=== PATIENT | female | born 1950 | race Caucasian/White ===

== ENCOUNTER 2023-02-08 16:43 | Outpatient (RCR) | payer MEDICARE, OTHER, SELFPAY | END 2023-02-08 23:59 | disposition home or self-care (01) | LOC: RPT 16:43 | PROVIDERS: ATTENDING PHYSICIAN Registered Nurse; PRIMARYCARE PHYSICIAN Family Medicine | DX: N39.3 Stress incontinence (female) (male) (principal); N39.41 Urge incontinence; N39.46 Mixed incontinence; M62.89 Other specified disorders of muscle | CPT/HCPCS: 97014; 97110; 97112; 97140; 97530 ==

== ENCOUNTER 2023-02-26 13:05 | Outpatient (RCR) | payer MEDICARE, OTHER, SELFPAY | END 2023-02-26 23:59 | disposition home or self-care (01) | LOC: RPT 13:05 | PROVIDERS: ATTENDING PHYSICIAN Registered Nurse; PRIMARYCARE PHYSICIAN Family Medicine | DX: N39.3 Stress incontinence (female) (male) (principal); N39.41 Urge incontinence; N39.46 Mixed incontinence; M62.89 Other specified disorders of muscle; Z73.6 Limitation of activities due to disability | CPT/HCPCS: 97014; 97110; 97112; 97530 ==

== ENCOUNTER → 2023-03-19 09:43 | Outpatient (REF) | payer MEDICARE, OTHER, SELFPAY | LOC: RAD 09:43 | PROVIDERS: ATTENDING PHYSICIAN Urology; FAMILY PHYSICIAN Family Medicine | DX: N81.6 Rectocele (principal); N39.3 Stress incontinence (female) (male); N32.81 Overactive bladder; M62.89 Other specified disorders of muscle | CPT/HCPCS: 76770 ==

== ENCOUNTER 2023-03-28 12:45 | Outpatient (RCR) | payer MEDICARE, OTHER, SELFPAY | END 2023-03-28 23:59 | disposition home or self-care (01) | LOC: RPT 12:45 | PROVIDERS: ATTENDING PHYSICIAN Registered Nurse; PRIMARYCARE PHYSICIAN Family Medicine | DX: N39.3 Stress incontinence (female) (male) (principal); N39.41 Urge incontinence; N39.46 Mixed incontinence; M62.89 Other specified disorders of muscle; Z73.6 Limitation of activities due to disability | CPT/HCPCS: 97112; 97530 ==

== ENCOUNTER → 2023-04-10 15:00 | Outpatient (REF) | payer MEDICARE, OTHER, SELFPAY | LOC: MRI 3T 15:00 | PROVIDERS: ATTENDING PHYSICIAN Family Medicine | DX: D32.9 Benign neoplasm of meninges, unspecified (principal) | CPT/HCPCS: 70551 ==

== ENCOUNTER → 2023-04-26 13:53 | Outpatient (REF) | payer MEDICARE, OTHER, SELFPAY | LOC: RAD 13:53 | PROVIDERS: ATTENDING PHYSICIAN Physician Assistant; FAMILY PHYSICIAN Family Medicine | DX: Z96.612 Presence of left artificial shoulder joint (principal); M75.122 Complete rotator cuff tear or rupture of left shoulder, not specified as traumatic | CPT/HCPCS: 23350; 73040; 73201; Q9967 ==

== ENCOUNTER 2023-05-04 10:08 | Outpatient (RCR) | payer MEDICARE, OTHER, SELFPAY | END 2023-05-04 23:59 | disposition home or self-care (01) | LOC: RPT 10:08 | PROVIDERS: ATTENDING PHYSICIAN Registered Nurse; PRIMARYCARE PHYSICIAN Family Medicine | DX: N39.3 Stress incontinence (female) (male) (principal); N39.41 Urge incontinence; N39.46 Mixed incontinence; M62.89 Other specified disorders of muscle; Z73.6 Limitation of activities due to disability | CPT/HCPCS: 97014; 97110; 97112; 97530 ==

== ENCOUNTER → 2023-06-01 09:09 | Outpatient (REF) | payer MEDICARE, OTHER, SELFPAY ==
[2023-06-01 09:59] LABS: Hematocrit 40.8 % (37.0-47.0); Mean Corp Hgb Conc. 34.3 g/dL (33.0-37.0); Mean Corpuscular Hgb 30.3 pg (27.0-31.0); Mean Corpuscular Volume 88.3 fL (81.0-99.0); Mean Platelet Volume 10.3 fL (7.4-10.4); Platelet Count 258 10^3/uL (130-400); Red Blood Cell Count 4.62 10^6/uL (4.20-5.40); Red Cell Dist. Width 13.2 % (11.5-14.5); White Blood Cell Count 6.7 10^3/uL (4.8-10.8)
[2023-06-01 11:01] LABS: Blood Urea Nitrogen 18 mg/dl (7-17); Calcium 9.6 mg/dl (8.4-10.2); Carbon Dioxide 28 mmol/L (22-30); Chloride 105 mmol/L (98-107); Glucose 94 mg/dl (70-99); Sodium 136 mmol/L (135-145); eGFR > 60.00
== END ==
LOC: SDSPAT 09:09
PROVIDERS: ATTENDING PHYSICIAN Obstetrics & Gynecology; FAMILY PHYSICIAN Family Medicine
DX: Z01.818 Encounter for other preprocedural examination (principal)
CPT/HCPCS: 36415; 80048; 85027; 86850; 86900; 86901; 93005

== ENCOUNTER → 2023-06-01 10:29 | Outpatient (RCR) | payer MEDICARE, OTHER, SELFPAY | END | disposition home or self-care (01) | LOC: RPT 10:29 | PROVIDERS: ATTENDING PHYSICIAN Registered Nurse; PRIMARYCARE PHYSICIAN Family Medicine | DX: N39.3 Stress incontinence (female) (male) (principal); N39.41 Urge incontinence; N39.46 Mixed incontinence; M62.89 Other specified disorders of muscle; Z73.6 Limitation of activities due to disability | CPT/HCPCS: 97530 ==

== ENCOUNTER 2023-06-12 06:18 | Day surgery (SDC) | payer MEDICARE, OTHER, SELFPAY ==
[2023-06-01 09:26] VITALS: BMI 34.5
[2023-06-12] VITALS (10 sets, daily range): BP systolic 124–163; BP diastolic 58–74; BMI 34.5
[2023-06-12] MEDS: Pyridium 200 MG PO (11:18)
[2023-06-12] MEDS: HEPARIN 5000 UNITS SC (11:19)
[2023-06-12] MEDS: NORMOSOL-R 1000 IV ×2 (11:27→21:42)
--- NOTE | 2023-06-12 21:00 | SUR.PHASEI ---
Rec'd sleepy in bed with HOb elevated low folwers, IV infusing well, oriented x3 by RN positioned for comfort,
--- NOTE | 2023-06-12 21:04 | SUR.PHASEI ---
Dexter, Dr mcguire
[2023-06-12] MEDS: DILAUDID 0.25 MG IV ×2 (21:07→21:22)
--- NOTE | 2023-06-12 21:18 | SUR.PHASEI ---
medicated for pain kerry well, HOb elevated low fowlers, pillow under knees kerry well, reassured, weathers remains to bsd, dark yellow urine
--- NOTE | 2023-06-12 21:32 | SUR.PHASEI ---
More alert, pain tolerable, c/o itchy L eye, warm compress given kerry well, kerry ice chips well
--- NOTE | 2023-06-12 21:45 | PTCARENOTE ---
Pt arrived to 2S via bed from PACU. Pt AAOX3 but drowsy. Head to toe assessment complete. 5 lap sites glued and OA. Pt complains of itchy eye. Warm compress given. Bed in lowest position and locked. Call pritchett with in reach.
[2023-06-12] MEDS: DILAUDID 0.5 MG IV (23:02)
[2023-06-12] MEDS: ELAVIL 25 MG PO (23:15)
[2023-06-13 00:45] VITALS: BP 118/69
[2023-06-13] MEDS: TORADOL 15 MG IV ×3 (02:09→15:39)
[2023-06-13 03:18] VITALS: BP 107/58
[2023-06-13] MEDS: ROXICODONE 2.5 MG PO (05:33)
[2023-06-13] MEDS: NORMOSOL-R 1000 IV (05:34)
[2023-06-13] MEDS: SYNTHROID 100 MCG PO (05:45)
[2023-06-13 06:15] LABS: Hematocrit 37.1 % (37.0-47.0); Hemoglobin 12.8 g/dL (12.0-16.0); Mean Corp Hgb Conc. 34.5 g/dL (33.0-37.0); Mean Corpuscular Hgb 30.6 pg (27.0-31.0); Mean Corpuscular Volume 88.8 fL (81.0-99.0); Mean Platelet Volume 10.8 fL (7.4-10.4); Platelet Count 191 10^3/uL (130-400); Red Blood Cell Count 4.18 10^6/uL (4.20-5.40); Red Cell Dist. Width 13.3 % (11.5-14.5); White Blood Cell Count 11.2 10^3/uL (4.8-10.8)
[2023-06-13 06:49] LABS: Blood Urea Nitrogen 22 mg/dl (7-17); Carbon Dioxide 24 mmol/L (22-30); Chloride 104 mmol/L (98-107); Estimated Creatinine Clearance 102 ml/min; Potassium 4.5 mmol/L (3.5-5.1); Sodium 133 mmol/L (135-145)
[2023-06-13 07:35] VITALS: BP 127/65
--- NOTE | 2023-06-13 08:10 | W.PN.GYN ---
Today's Communication / Plan
-
-voiding trial
-d/c home
Physician Note
-
Assessment and Plan:
72 yo woman POD 1 s/p Robotic assisted total hysterectomy, BSO, lysis of adhesions, sacrocolpopexy, midurethral sling, posterior colporrhaphy with perineoplasty, cystoscopy: doing well postop day 1 and meeting postop milestones.
1. Postoperative Care
-hep lock iv
-dvt ppx: lovenox, ambulation, scds
-cbc: WNL
-bmp: WNL
-uop: adequate
-voiding trial: pending
-regular diety
2. Dispo
-d/c home today
Subjective:
no acute complaints, pain well controlled, tolerating diet, ambulating in room.
Objective:
Intake and Output
06/11/23 06/12/23 06/13/23 06/14/23
06:59 06:59 06:59 06:59
Intake Total 1580 / 1580
Output Total 515 / 515
Balance 1065 / 1065
Intake:
Oral fluids 480 / 480
IV fluids (Total) 1100 / 1100
normosol 100 / 100
Output:
Urine, Quach 515 / 515
Vital Signs
Temp Pulse Resp BP Pulse Ox
98.2 F 71 16 107/58 97
06/13/23 03:18 06/13/23 03:18 06/13/23 03:18 06/13/23 03:18 06/13/23 03:18
Lab Results
06/13/23 04:51
06/13/23 04:51
Abdomen: soft, nontender, nondistended
Incisions: clean, dry, intact
: minimal spotting, packing removed
--- NOTE | 2023-06-13 10:52 | CM ---
Initial assessment completed with patient who lives with her significant other in a one story home with no basement and 1 step to enter. [employer] patient was independent and drove, no DME or in-home services. Pharmacy is [facility] on [address] in [place]
and PCP is Dr. Elier Chase. Patient would like to have a VN after discharge. Her preference is [facility]. Referral will be forwarded.
[2023-06-13] MEDS: COLACE 100 MG PO (10:55)
[2023-06-13] MEDS: WELLBUTRIN XL (24 hour extended release) 300 MG PO (10:58)
[2023-06-13 11:05] VITALS: BP 103/56
--- NOTE | 2023-06-13 12:48 | CM ---
Patient has been medically cleared for discharge to home with [facility] VN services. Patient has arranged for transport home.
--- NOTE | 2023-06-13 13:51 | VNURNOTE ---
Home Health Liaison met with patient at 1300 to discuss [facility] nurse visits, schedule and homebound status. Patient is agreeable and understands that visits at home will be 2-3 x per week to assess and teach medical management.
[facility] brochure provided with contact information. Patient is aware that [facility] will contact her for start of care in 1-2 days after discharge from .
[facility] referral updated in [facility].
[2023-06-13] MEDS: NORMOSOL-R IV (14:19)
[2023-06-13] MEDS: ROXICODONE 5 MG PO (14:21)
[2023-06-13] MEDS: TYLENOL 650 MG PO (14:26)
[2023-06-13 15:00] VITALS: BP 114/55
--- NOTE | 2023-06-13 17:47 | PTCARENOTE ---
Pt bladder scanned around 1640 and had a PVR of 300 after urinating 200mls. Pt refused catheter and asked for more time. Pt now voided 225mls and bladder scanned for 59mls. Will discharge Pt as planned and ordered.
[2023-06-14 18:55] LABS: Hepatitis C Antibody Negative (Negative)
== END 2023-06-13 19:00 | disposition home or self-care (01) ==
LOC: SDS 06:18
PROVIDERS: ATTENDING PHYSICIAN Obstetrics & Gynecology; FAMILY PHYSICIAN Family Medicine
DX: N81.2 Incomplete uterovaginal prolapse (principal); N39.3 Stress incontinence (female) (male); N95.2 Postmenopausal atrophic vaginitis; N84.0 Polyp of corpus uteri; D25.9 Leiomyoma of uterus, unspecified
CPT/HCPCS: 57425; 58571; 57250; 57288; 88305; 80051; 82565; 84520; 85027; 86803; 86900; 86901; C1781

== ENCOUNTER 2023-08-06 08:20 | Outpatient (RCR) | payer MEDICARE, OTHER, SELFPAY | END 2023-08-06 23:59 | disposition home or self-care (01) | LOC: RPT 08:20 | PROVIDERS: ATTENDING PHYSICIAN Obstetrics & Gynecology; FAMILY PHYSICIAN Family Medicine | DX: M62.89 Other specified disorders of muscle (principal); Z09 Encounter for follow-up examination after completed treatment for conditions other than malignant neoplasm | CPT/HCPCS: 97163; 97530 ==

== ENCOUNTER 2023-09-10 14:14 | Outpatient (RCR) | payer MEDICARE, OTHER, SELFPAY | END 2023-09-10 23:59 | disposition home or self-care (01) | LOC: RPT 14:14 | PROVIDERS: ATTENDING PHYSICIAN Obstetrics & Gynecology; FAMILY PHYSICIAN Family Medicine | DX: M62.89 Other specified disorders of muscle (principal) | CPT/HCPCS: 97110; 97112; 97140; 97530 ==

== ENCOUNTER 2023-10-11 11:54 | Outpatient (RCR) | payer MEDICARE, OTHER, SELFPAY | END 2023-10-11 23:59 | disposition home or self-care (01) | LOC: RPT 11:54 | PROVIDERS: ATTENDING PHYSICIAN Obstetrics & Gynecology; FAMILY PHYSICIAN Family Medicine | DX: M62.89 Other specified disorders of muscle (principal); Z09 Encounter for follow-up examination after completed treatment for conditions other than malignant neoplasm | CPT/HCPCS: 97140; 97530 ==

== ENCOUNTER 2023-10-25 12:16 | Outpatient (RCR) | payer MEDICARE, OTHER, SELFPAY | END 2023-10-25 23:59 | disposition home or self-care (01) | LOC: RPT 12:16 | PROVIDERS: ATTENDING PHYSICIAN Obstetrics & Gynecology; FAMILY PHYSICIAN Family Medicine | DX: M62.89 Other specified disorders of muscle (principal); Z98.890 Other specified postprocedural states; Z09 Encounter for follow-up examination after completed treatment for conditions other than malignant neoplasm; Z96.612 Presence of left artificial shoulder joint | CPT/HCPCS: 97014; 97110; 97112; 97140 ==

== ENCOUNTER → 2023-11-01 09:04 | Outpatient (REF) | payer MEDICARE, OTHER, SELFPAY | LOC: RAD 09:04 | PROVIDERS: ATTENDING PHYSICIAN Family Medicine | DX: Z87.891 Personal history of nicotine dependence (principal) | CPT/HCPCS: 71271 ==

== ENCOUNTER 2023-12-05 10:31 | Outpatient (RCR) | payer MEDICARE, OTHER, SELFPAY | END 2023-12-05 23:59 | disposition home or self-care (01) | LOC: RPT 10:31 | PROVIDERS: ATTENDING PHYSICIAN Obstetrics & Gynecology; FAMILY PHYSICIAN Family Medicine | DX: M62.89 Other specified disorders of muscle (principal); R39.15 Urgency of urination; Z09 Encounter for follow-up examination after completed treatment for conditions other than malignant neoplasm | CPT/HCPCS: 97014; 97112; 97140; 97530 ==

== ENCOUNTER → 2023-12-19 10:19 | Outpatient (REF) | payer MEDICARE, OTHER, SELFPAY | LOC: HWRAD 10:19 | PROVIDERS: ATTENDING PHYSICIAN Family Medicine | DX: M85.89 Other specified disorders of bone density and structure, multiple sites (principal) | CPT/HCPCS: 77080 ==

== ENCOUNTER 2024-01-09 13:08 | Outpatient (RCR) | payer MEDICARE, OTHER, SELFPAY | END 2024-01-09 23:59 | disposition home or self-care (01) | LOC: RPT 13:08 | PROVIDERS: ATTENDING PHYSICIAN Obstetrics & Gynecology; FAMILY PHYSICIAN Family Medicine | DX: M62.89 Other specified disorders of muscle (principal); Z09 Encounter for follow-up examination after completed treatment for conditions other than malignant neoplasm; N81.6 Rectocele; Z73.6 Limitation of activities due to disability | CPT/HCPCS: 97014; 97110; 97112; 97140; 97530 ==

== ENCOUNTER → 2024-01-11 09:03 | Outpatient (REF) | payer MEDICARE, OTHER, SELFPAY | LOC: HWWDC 09:03 | PROVIDERS: ATTENDING PHYSICIAN Family Medicine | DX: Z12.31 Encounter for screening mammogram for malignant neoplasm of breast (principal) | CPT/HCPCS: 77063; 77067 ==

== ENCOUNTER → 2024-01-23 11:24 | Outpatient (REF) | payer MEDICARE, OTHER, SELFPAY | LOC: RCS 11:24 | PROVIDERS: ATTENDING PHYSICIAN Physical Medicine & Rehabilitation; FAMILY PHYSICIAN Family Medicine | DX: Z01.818 Encounter for other preprocedural examination (principal) | CPT/HCPCS: 93005 ==

== ENCOUNTER 2024-02-07 11:57 | Outpatient (RCR) | payer MEDICARE, OTHER, SELFPAY | END 2024-02-07 23:59 | disposition home or self-care (01) | LOC: RPT 11:57 | PROVIDERS: ATTENDING PHYSICIAN Obstetrics & Gynecology; FAMILY PHYSICIAN Family Medicine | DX: M62.89 Other specified disorders of muscle (principal); N81.6 Rectocele; Z73.6 Limitation of activities due to disability; Z09 Encounter for follow-up examination after completed treatment for conditions other than malignant neoplasm | CPT/HCPCS: 97112; 97140; 97530 ==

== ENCOUNTER → 2024-11-17 09:34 | Outpatient (REF) | payer MEDICARE, OTHER, SELFPAY | LOC: REG 09:34 | PROVIDERS: ATTENDING PHYSICIAN Orthopaedic Surgery; FAMILY PHYSICIAN Family Medicine | DX: Z01.818 Encounter for other preprocedural examination (principal) | CPT/HCPCS: 93005 ==

== ENCOUNTER 2025-01-09 06:55 | Outpatient (RCR) | payer MEDICARE, OTHER, SELFPAY | END 2025-01-09 23:59 | disposition home or self-care (01) | LOC: RPT 06:55 | PROVIDERS: ATTENDING PHYSICIAN Orthopaedic Surgery; FAMILY PHYSICIAN Family Medicine | DX: Z47.1 Aftercare following joint replacement surgery (principal); Z73.6 Limitation of activities due to disability; R26.2 Difficulty in walking, not elsewhere classified; M62.81 Muscle weakness (generalized); R26.89 Other abnormalities of gait and mobility; M25.561 Pain in right knee; Z96.651 Presence of right artificial knee joint | CPT/HCPCS: 97010; 97110; 97161 ==

== ENCOUNTER 2025-02-09 07:19 | Outpatient (RCR) | payer MEDICARE, OTHER, SELFPAY | END 2025-02-09 23:59 | disposition home or self-care (01) | LOC: RPT 07:19 | PROVIDERS: ATTENDING PHYSICIAN Orthopaedic Surgery; FAMILY PHYSICIAN Family Medicine | DX: Z47.1 Aftercare following joint replacement surgery (principal); Z73.6 Limitation of activities due to disability; R26.2 Difficulty in walking, not elsewhere classified; M62.81 Muscle weakness (generalized); R26.89 Other abnormalities of gait and mobility; M25.561 Pain in right knee; Z96.651 Presence of right artificial knee joint | CPT/HCPCS: 97010; 97110; 97116; 97140; 97530 ==